=== PATIENT | female | born 1950 | race Caucasian/White ===

== ENCOUNTER → 2018-07-29 | Day surgery (SDC) | payer MEDICARE ==
[2018-07-24 15:26] LABS: BASOPHILS # (AUTO) 0.1 (0.0-0.1); BASOPHILS % 0.5 % (0.0-1.0); EOSINOPHILS # (AUTO) 0.2 (0.0-0.4); EOSINOPHILS % 1.7 % (0.0-6.0); HEMATOCRIT 42.8 % (34.2-44.1); HEMOGLOBIN 13.7 g/dL (12.0-16.0); LYMPHOCYTES # (AUTO) 3.6 (1.0-3.2); LYMPHOCYTES % 29.2 % (18.0-39.1); MEAN CORPUSCULAR VOLUME 93.7 fL (81-99); MONOCYTES % 8.1 % (4.4-11.3); NEUTROPHILS # (AUTO) 7.3 (2.1-6.9); NEUTROPHILS % 60.1 % (38.7-80.0); PLATELET COUNT 383 x10e3/uL (140-360); RED BLOOD COUNT 4.57 x10e6/uL (3.6-5.1); RED CELL DISTRIBUTION WIDTH 15.2 % (11.7-14.4)
[~2018-07-29] MED LIST: BUPROPION HCL100 MG PO; HYDRALAZINE HCL 20 MG/ML VIAL ONE; HYDROXYZINE HCL25 MG PO; LIDOCAINE HCL 2% LOCAL INJ 5 ML SDV VIAL INJ ONE; LISINOPRIL10 MG PO; METOCLOPRAMIDE HCL 10 MG/2ML VIAL ONE; METOPROLOL; MIDAZOLAM HCL 2 MG/2 ML VIAL ONE; OMEPRAZOLE40 MG; ONDANSETRON HCL INJ 2MG/ML 2ML 2 MG/ML VIAL ONE; PROPOFOL IV EMULSION 10 MG/ML 50 ML VIAL ONE; TYLENOL PO; ZETIA10 MG PO
[2018-07-29 10:35] VITALS: BP 141/89
== END | disposition home or self-care (01) ==
LOC: OR 07:58
PROVIDERS: ATTEND Internal Medicine Gastroenterology
DX: Z12.11 Encounter for screening for malignant neoplasm of colon (principal); D12.2 Benign neoplasm of ascending colon; K29.70 Gastritis, unspecified, without bleeding; K21.9 Gastro-esophageal reflux disease without esophagitis; K31.89 Other diseases of stomach and duodenum; K44.9 Diaphragmatic hernia without obstruction or gangrene; K57.30 Diverticulosis of large intestine without perforation or abscess without bleeding; K64.8 Other hemorrhoids; I10 Essential (primary) hypertension; E78.5 Hyperlipidemia, unspecified; F32.9 Major depressive disorder, single episode, unspecified; F17.210 Nicotine dependence, cigarettes, uncomplicated; Z01.810 Encounter for preprocedural cardiovascular examination; Z01.812 Encounter for preprocedural laboratory examination
CPT/HCPCS: 36415; 43239; 45385; 85025; 93005; J0360; J2001; J2250; J2405; J2704; J2765; 45378

== ENCOUNTER → 2023-08-06 | Day surgery (SDC) | payer MEDICARE ==
[2023-08-02 16:10] LABS: BASOPHILS # (AUTO) 0.1 (0.0-0.1); BASOPHILS % 0.6 % (0.0-1.0); EOSINOPHILS # (AUTO) 0.2 (0.0-0.4); EOSINOPHILS % 1.7 % (0.0-6.0); HEMATOCRIT 44.3 % (34.2-44.1); HEMOGLOBIN 14.4 g/dL (12.0-16.0); LYMPHOCYTES # (AUTO) 4.4 (1.0-3.2); LYMPHOCYTES % 31.5 % (18.0-39.1); MEAN CORPUSCULAR HEMOGLOBIN 28.9 pg (28-32); MEAN CORPUSCULAR HGB CONC 32.5 g/dL (31-35); MONOCYTES # (AUTO) 1.3 (0.2-0.8); MONOCYTES % 9.7 % (4.4-11.3); NEUTROPHILS # (AUTO) 7.8 (2.1-6.9); NEUTROPHILS % 56.1 % (38.7-80.0); PLATELET COUNT 344 x10e3/uL (140-360); RED BLOOD COUNT 4.98 x10e6/uL (3.6-5.1); RED CELL DISTRIBUTION WIDTH 15.5 % (11.7-14.4); WHITE BLOOD COUNT 13.86 x10e3/uL (4.8-10.8)
[~2023-08-06] MED LIST changes: +ASPIRIN81 MG PO; +ATORVASTATIN CA10 MG PO; +CALCIUM VITAMIN D PO; +CHANTIX PO; +GLUCAGON FOR INJ 1 MG VIAL ONE; +GLYCOPYRROLATE INJ 0.2 MG/ML VIAL ONE; -HYDRALAZINE HCL 20 MG/ML VIAL ONE; +METOPROLOL SUCC25 MG PO; -MIDAZOLAM HCL 2 MG/2 ML VIAL ONE; +NAPROXEN250 MG PO; -OMEPRAZOLE40 MG; +OMEPRAZOLE40 MG PO; -ONDANSETRON HCL INJ 2MG/ML 2ML 2 MG/ML VIAL ONE; +PRESERVISION A1 EAC3 PO; +PROPOFOL IV EMULSION 10 MG/ML 20 ML VIAL ONE; -PROPOFOL IV EMULSION 10 MG/ML 50 ML VIAL ONE; +SEVOFLURANE INHAL SOLN 250 ML PEN BTL ONE
[2023-08-06] MEDS: LACTATED RINGER'S 1,000 ML ONE (09:03)
[2023-08-06] MEDS: ALBUTEROL/IPRATROPIUM 3 ML NEB ONE (11:52)
[2023-08-06] MEDS: ACETAMINOPHEN 1000 MG/100 ML 100 ML IV ONE (12:13)
[2023-08-06 14:40] VITALS: BP 137/88; PULSE 72; RESP 17; TEMP 97.4; O2SAT 97
== END | disposition home or self-care (01) ==
LOC: OR 08:48
PROVIDERS: ATTEND Internal Medicine Gastroenterology
DX: Z12.11 Encounter for screening for malignant neoplasm of colon (principal); K57.30 Diverticulosis of large intestine without perforation or abscess without bleeding; R11.10 Vomiting, unspecified; I10 Essential (primary) hypertension; E78.5 Hyperlipidemia, unspecified; F41.9 Anxiety disorder, unspecified; F17.200 Nicotine dependence, unspecified, uncomplicated; Z01.810 Encounter for preprocedural cardiovascular examination; Z01.812 Encounter for preprocedural laboratory examination; Z79.82 Long term (current) use of aspirin
CPT/HCPCS: 36415; 74270; 85025; 93005; G0121; J0131; J1610; J2001; J2704; J2765; J7121; 45378